=== PATIENT | male | born 1965 | race Hispanic/Latino ===

== ENCOUNTER → 2017-08-03 | Outpatient (CLI) | payer BC ==
[2017-08-03 11:43] LABS: ALBUMIN 4.2 g/dL (3.5-5.0); BILIRUBIN,DIRECT 0.2 mg/dL (0.0-0.5)
== END ==
LOC: LAB 11:03
PROVIDERS: ATTEND Podiatrist Foot & Ankle Surgery
DX: B35.1 Tinea unguium (principal)
CPT/HCPCS: 36415; 80076

== ENCOUNTER 2018-08-03 17:00 | Outpatient (RCR) | payer BC, OTHER | END 2018-08-06 | LOC: PT 17:00 | PROVIDERS: ATTEND Specialist | DX: M99.03 Segmental and somatic dysfunction of lumbar region (principal); M54.5 Low back pain; M62.81 Muscle weakness (generalized) ==

== ENCOUNTER → 2018-09-05 | Outpatient (RCR) | payer OTHER | LOC: PT 08-07 17:29 | PROVIDERS: ATTEND Specialist | DX: M99.03 Segmental and somatic dysfunction of lumbar region (principal); M54.5 Low back pain; M62.81 Muscle weakness (generalized) ==

== ENCOUNTER 2018-09-18 17:00 | Outpatient (RCR) | payer OTHER | END 2018-10-06 | LOC: PT 17:00 | PROVIDERS: ATTEND Specialist | DX: M99.03 Segmental and somatic dysfunction of lumbar region (principal); M54.5 Low back pain; M62.81 Muscle weakness (generalized) | CPT/HCPCS: 97139 ==